=== PATIENT | male | born 2005 | race African-American/Black ===

== ENCOUNTER 2024-03-09 13:58 | Emergency (ER) | payer OTHER ==
[~2024-03-09] VITALS: Ht 175.2 cm; Wt 77.1 kg
[2024-03-09] MEDS ORDERED: diphenhydrAMINE hydrochloride 50 MG/ML VIAL IV ONE (14:45)
[2024-03-09] MEDS ORDERED: Ketorolac Tromethamine 30 MG/ML VIAL IV ONE (14:45)
[2024-03-09] MEDS ORDERED: Ondansetron Hydrochloride 4 MG/2 ML VIAL IV ONE (14:45)
[2024-03-09] MEDS ORDERED: SODIUM CHLORIDE 0.9% 1,000 ML IV ONE (14:45)
[2024-03-09 15:09] LABS: BASO # 0.1 10*3/uL (0.0-0.1); BASO % 0.7 % (0.0-1.0); EOS # 0.1 10*3/uL (0.0-0.4); EOS % 0.6 % (1.0-4.0); HEMATOCRIT 45.7 % (42.0-52.0); LYMPH # 1.5 10*3/uL (1.3-4.4); LYMPH % 16.6 % (27.0-41.0); MEAN CELL VOLUME 83.4 fl (80.0-94.0); MEAN CORPUSCULAR HGB 26.1 pg (27.0-31.0); MEAN CORPUSCULAR HGB CONC 31.3 g/dl (33.0-37.0); MONO # 0.7 10*3/uL (0.1-1.0); MONO % 7.5 % (3.0-9.0); NEUT # 6.7 10*3/uL (2.3-7.9); NEUT % 74.3 % (47.0-73.0); PLATELET COUNT AUTOMATED 160 10*3/uL (130-400); RED BLOOD COUNT 5.48 10*6/uL (4.50-5.90); RED CELL DISTRI WIDTH 14.9 % (0-14.5)
[2024-03-09 15:14] LABS: BUN 7 mg/dl (9-23); CHLORIDE 107 mmol/L (98-107); POTASSIUM 4.1 mmol/L (3.4-5.1)
[2024-03-09] MEDS ORDERED: ONDANSETRON4 MG SL (15:51)
== END 2024-03-09 16:12 | disposition home or self-care (01) ==
LOC: ED 13:58
PROVIDERS: Internal Medicine
DX: R51.9 Headache, unspecified (principal); R11.2 Nausea with vomiting, unspecified